=== PATIENT | male | born 1955 | race Caucasian/White ===

== ENCOUNTER 2017-02-03 12:44 | Emergency (ER) | payer SELFPAY ==
[~2017-02-03] VITALS: Ht 167.6 cm; Wt 109.1 kg
[~2017-02-03 12:44] MED LIST: ATEN100T PO
[2017-02-03] MEDS ORDERED: HYDROCODONE/ACETAMINOPHEN 5-325 MG TABLET PO ONE (15:00)
[2017-02-03 15:34] VITALS: BP 136/88
== END 2017-02-03 15:54 | disposition home or self-care (01) ==
LOC: EMS 12:46
DX: S92.412A Displaced fracture of proximal phalanx of left great toe, initial encounter for closed fracture (principal); I10 Essential (primary) hypertension; W22.8XXA Striking against or struck by other objects, initial encounter; Y93.89 Activity, other specified; Y92.89 Other specified places as the place of occurrence of the external cause; Y99.8 Other external cause status
CPT/HCPCS: 99284

== ENCOUNTER 2018-09-01 10:26 | Emergency (ER) | payer SELFPAY ==
[~2018-09-01] VITALS: Ht 165.1 cm; Wt 109.1 kg
[2018-09-01 10:34] VITALS: BP 177/90
[2018-09-01] MEDS ORDERED: AMLO2.5T3 PO (10:37)
[2018-09-01] MEDS ORDERED: LOSA25TA41 PO (10:37)
[2018-09-01] MEDS ORDERED: ASPI81 PO (10:37)
== END 2018-09-01 12:29 | disposition home or self-care (01) ==
LOC: EMS 10:27
DX: H10.12 Acute atopic conjunctivitis, left eye (principal); I10 Essential (primary) hypertension; Z79.82 Long term (current) use of aspirin